=== PATIENT | male | born 1995 | race African-American/Black ===

== ENCOUNTER 2019-04-27 14:04 | Emergency (ER) | payer OTHER ==
[~2019-04-27] VITALS: Ht 188 cm; Wt 73.0 kg
[2019-04-27] MEDS ORDERED: ABIL10 PO (14:15)
[2019-04-27] MEDS ORDERED: TRAZADONE (14:15)
[2019-04-27 15:28] LABS: BASOPHILS % 0.2 % (0.0-2.0); EOSINOPHILS % 0.7 % (0.0-5.0); HEMATOCRIT. 33.3 % (42.0-52.0); HEMOGLOBIN. 11.6 g/dL (14.0-18.0); LYMPHOCYTES % 12.3 % (20.0-50.0); MEAN CORPUSCULAR HEMOGLOBIN 30.1 pg (28.0-32.0); MEAN CORPUSCULAR VOLUME 86.5 fL (80.0-94.0); MEAN PLATELET VOLUME 8.2 fl (7.4-10.4); MONOCYTES % 8.4 % (2.0-8.0); NEUTROPHILS % 78.4 % (40.0-76.0); PLATELET 181 x1000/uL (130-400); RED BLOOD CELL COUNT 3.85 mill/uL (4.7-6.1)
[2019-04-27 15:31] LABS: CHLORIDE 108 mEq/L (98-107)
[2019-04-27 15:36] LABS: ETHANOL BLOOD < 10 mg/dL
[2019-04-27] MEDS ORDERED: POTASSIUM CHLORIDE 20MEQ TABLET SR PO ONE (16:45)
[2019-04-27] MEDS ORDERED: SODIUM CHLORIDE 0.9% 1,000 ML IV ONE (19:24)
[2019-04-27 20:13] LABS: *BARBITURATES SCREEN URINE NEGATIVE (NEGATIVE)
[2019-04-27 20:14] LABS: *AMPHETAMINES SCREEN URINE NEGATIVE (NEGATIVE); *BENZODIAZEPINES SCREEN URINE NEGATIVE (NEGATIVE); METHADONE URINE SCREEN NEGATIVE (NEGATIVE); OPIATES URINE SCREEN NEGATIVE (NEGATIVE); PHENCYCLIDINE URINE SCREEN NEGATIVE (NEGATIVE)
[2019-04-27 20:15] LABS: CANNABINOID URINE SCREEN PRESUMTIVE POSITIVE (NEGATIVE)
[2019-04-27 20:20] LABS: *COCAINE SCREEN URINE NEGATIVE (NEGATIVE)
[2019-04-27 22:30] VITALS: BP 118/51
== END 2019-04-27 23:03 ==
LOC: ER 14:04
DX: T43.212A Poisoning by selective serotonin and norepinephrine reuptake inhibitors, intentional self-harm, initial encounter (principal); R41.82 Altered mental status, unspecified; F33.3 Major depressive disorder, recurrent, severe with psychotic symptoms; E87.6 Hypokalemia; E87.8 Other disorders of electrolyte and fluid balance, not elsewhere classified; F11.10 Opioid abuse, uncomplicated; F12.90 Cannabis use, unspecified, uncomplicated; Y92.89 Other specified places as the place of occurrence of the external cause
CPT/HCPCS: 36415; 80053; 80305; 80307; 80320; 80329; 85025; 93005; 99285; J7030; G0480